=== PATIENT | female | born 1965 | race Caucasian/White ===

== ENCOUNTER 2021-02-16 16:28 | Inpatient (IN) | payer MEDICAID ==
[~2021-02-16] VITALS: Ht 162.6 cm; Wt 70.0 kg
[2021-02-16 16:30] VITALS: BP 195/106
[2021-02-16] MEDS ORDERED: BLOOD PRESSURE (16:37)
[2021-02-16] MEDS ORDERED: INHALER (16:38)
[2021-02-16 17:10] LABS: ABSOLUTE EOSINOPHILS 0.7 thou/uL (0.0-0.7); ABSOLUTE MONOCYTES 1.2 thou/uL (0.0-1.2); ABSOLUTE NEUTROPHILS 10.7 thou/uL (1.6-8.1); BASOPHILS 0.3 %; EOSINOPHILS 5.2 %; HEMATOCRIT 36.5 % (37.0-47.0); MCH 33.3 pg (26.0-34.0); MCHC 32.9 g/dL (28.0-37.0); MCV 101.2 fL (80.0-100.0); MONOCYTES 9.1 %; MPV 9.5 fl. (7.2-11.1); NUCLEATED RBCS 0 /100WBC; POLYS 78.4 %; RBC 3.61 mil/uL (4.20-5.00); RDW-CV 17.7 % (10.5-14.5); WBC 13.6 thou/uL (4.0-11.0)
[2021-02-16 17:15] LABS: CALCIUM 8.9 mg/dL (8.5-10.1); CREATININE 0.6 mg/dL (0.6-1.3); POTASSIUM 4.8 mmol/L (3.5-5.1)
[2021-02-16 17:26] LABS: ALBUMIN 2.2 g/dL (3.4-5.0); TOTAL BILIRUBIN 2.7 mg/dL (<0.1-1.0); TOTAL PROTEIN 6.1 g/dL (6.4-8.2)
[2021-02-16 17:39] LABS: PLATELET COUNT* 200 thou/uL (150-400)
[2021-02-16 17:40] LABS: PLATELET ESTIMATE ADEQUATE
[2021-02-16 17:59] LABS: APTT 26.3 Seconds (25.0-31.3); INR 1.1; PROTIME 11.6 Seconds (9.20-11.50)
[2021-02-16 18:25] LABS: URINE BLOOD 3+ (Negative); URINE CLARITY SL CLOUDY; URINE COLOR STRAW; URINE GLUCOSE-RANDOM NEGATIVE (Negative); URINE KETONES TRACE (Negative); URINE PROTEIN 3+ (Negative); URINE SPECIFIC GRAVITY >= 1.030 (1.005-1.030)
[2021-02-16 18:31] LABS: URINE BILIRUBIN 2+ (Negative); URINE LEUKOCYTES-REFLEX 2+ (Negative); URINE NITRITE-REFLEX POSITIVE (Negative)
[2021-02-16 18:32] LABS: ICTOTEST (BILI CONFIRMATORY) Positive (Negative)
[2021-02-16 18:33] LABS: AMP/METHAMP POSITIVE (Negative); BARBITURATES Negative (Negative); BENZODIAZEPINES Negative (Negative); COCAINE Negative (Negative); METHADONE Negative (Negative); OPIATES Negative (Negative); PCP Negative (Negative); THC Negative (Negative)
[2021-02-16 18:43] LABS: BACTERIA-REFLEX >30 Many /HPF (None Seen); CASTS None Seen /LPF (None Seen); CRYSTALS None Seen /LPF (None Seen); SQUAMOUS >10 Many /LPF (0-3)
[2021-02-16 21:00] VITALS: BP 157/85
[2021-02-17 04:45] LABS: HEMATOCRIT 37.2 % (37.0-47.0); MCH 32.7 pg (26.0-34.0); MCHC 32.4 g/dL (28.0-37.0); MPV 8.4 fl. (7.2-11.1); NUCLEATED RBCS 0 /100WBC; RBC 3.68 mil/uL (4.20-5.00); RDW-CV 17.6 % (10.5-14.5); WBC 12.1 thou/uL (4.0-11.0)
[2021-02-17 05:02] LABS: CALCIUM 9.2 mg/dL (8.5-10.1); CREATININE 0.9 mg/dL (0.6-1.3); POTASSIUM 4.8 mmol/L (3.5-5.1)
[2021-02-17 05:11] LABS: PLATELET COUNT* 116 thou/uL (150-400)
[2021-02-17 07:04] LABS: ABSOLUTE MONOCYTES 0.4 thou/uL (0.0-1.2); ABSOLUTE NEUTROPHILS 10.8 thou/uL (1.6-8.1); PLATELET ESTIMATE ADEQUATE
[2021-02-17 08:00] VITALS: BP 148/71
--- NOTE | 2021-02-17 12:30 | EKG ---
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
[2021-02-17] MEDS ORDERED: PROVENTIL HFA6.7 G1 INH (15:18)
[2021-02-17 16:15] VITALS: BP 161/73
[2021-02-17 20:30] VITALS: BP 167/95
[2021-02-18 04:25] LABS: HEMATOCRIT 35.2 % (37.0-47.0); HEMOGLOBIN 11.4 gm/dL (12.0-15.0); MCH 32.9 pg (26.0-34.0); MCHC 32.5 g/dL (28.0-37.0); MCV 101.4 fL (80.0-100.0); RBC 3.47 mil/uL (4.20-5.00); WBC 13.3 thou/uL (4.0-11.0)
[2021-02-18 04:31] LABS: CALCIUM 8.7 mg/dL (8.5-10.1); POTASSIUM 4.6 mmol/L (3.5-5.1)
[2021-02-18 08:00] VITALS: BP 172/91
[2021-02-18 16:18] VITALS: BP 163/85
[2021-02-18 20:00] VITALS: BP 151/86
[2021-02-19 04:51] LABS: HEMATOCRIT 36.5 % (37.0-47.0); HEMOGLOBIN 11.8 gm/dL (12.0-15.0); MCH 32.6 pg (26.0-34.0); MCHC 32.3 g/dL (28.0-37.0); MCV 100.8 fL (80.0-100.0); MPV 8.9 fl. (7.2-11.1); RBC 3.62 mil/uL (4.20-5.00); RDW-CV 16.9 % (10.5-14.5); WBC 12.2 thou/uL (4.0-11.0)
[2021-02-19 05:14] LABS: CALCIUM 8.7 mg/dL (8.5-10.1); CREATININE 1.4 mg/dL (0.6-1.3); POTASSIUM 5.1 mmol/L (3.5-5.1)
[2021-02-19 07:05] VITALS: BP 140/70
[2021-02-19] MEDS ORDERED: AZITHROMYCIN500 MG PO (08:30)
[2021-02-19] MEDS ORDERED: CEFDINIR300 MG PO (08:30)
[2021-02-19] MEDS ORDERED: PREDNISONE 20 M20 MG PO (08:30)
[2021-02-19 09:01] VITALS: BP 140/70
== END 2021-02-19 11:45 | disposition home or self-care (01) | DRG 177 ==
LOC: M.ERS 16:28 → M.TBA-ER 18:31 → M.ORTHSURG 18:31
PROVIDERS: Emergency Medicine Emergency Medical Services; Family Medicine; ADMIT Internal Medicine; ATTEND Internal Medicine
DX: J15.6 Pneumonia due to other Gram-negative bacteria (principal); N17.0 Acute kidney failure with tubular necrosis; R65.10 Systemic inflammatory response syndrome (SIRS) of non-infectious origin without acute organ dysfunction; N39.0 Urinary tract infection, site not specified; J44.1 Chronic obstructive pulmonary disease with (acute) exacerbation; J44.0 Chronic obstructive pulmonary disease with (acute) lower respiratory infection; K76.6 Portal hypertension; R18.8 Other ascites; B96.20 Unspecified Escherichia coli [E. coli] as the cause of diseases classified elsewhere; K74.60 Unspecified cirrhosis of liver; I16.0 Hypertensive urgency; I10 Essential (primary) hypertension; F17.200 Nicotine dependence, unspecified, uncomplicated; Z20.822 Contact with and (suspected) exposure to COVID-19; Z59.0 Homelessness